=== PATIENT | male | born 1995 | race Caucasian/White ===

== ENCOUNTER 2017-08-18 02:39 | Emergency (ER) | payer OTHER ==
[~2017-08-18] VITALS: Ht 180.3 cm; Wt 115.6 kg
[2017-08-18] MEDS ORDERED: SODIUM CHLORIDE 0.9% 1,000ML IVBOLUS ONE (03:00)
[2017-08-18] MEDS ORDERED: FAMOTIDINE 20 MG/2 ML IVP ONE (03:00)
[2017-08-18] MEDS ORDERED: MAALOX/HYOSCYAMINE/LIDOCAINE 45 ML BTL PO ONE (03:00)
[2017-08-18] MEDS ORDERED: ONDANSETRON 2MG/ML, 2ML IVPush ONE (03:00)
[2017-08-18] MEDS ORDERED: SODIUM CHLORIDE FLUSH 10ML SYR IVF ONE (03:00)
[2017-08-18 03:20] LABS: HEMATOCRIT 46.9 % (39.2-51.8); HEMOGLOBIN 15.5 g/dL (13.7-18.0); WHITE BLOOD COUNT 8.7 x10^3/uL (3.4-10)
[2017-08-18 03:31] LABS: BLOOD UREA NITROGEN 14 mg/dL (7-18)
[2017-08-18 03:34] LABS: ASPARTATE AMINO TRANSFERASE 19 U/L (15-37)
[2017-08-18] MEDS ORDERED: ONDANSETRON 2MG/ML, 2ML ONE (03:52)
[2017-08-18] MEDS ORDERED: FAMOTIDINE 20 MG/2 ML ONE (03:52)
[2017-08-18] MEDS ORDERED: MAALOX/HYOSCYAMINE/LIDOCAINE 45 ML BTL ONE (03:52)
[2017-08-18] MEDS ORDERED: PROMETHAZINE 25 MG/ML, 1ML IM ONE (04:30)
[2017-08-18] MEDS ORDERED: PROMETHAZINE 25 MG/ML, 1ML ONE (04:34)
[2017-08-18 05:12] VITALS: BP 142/71
[2017-08-18] MEDS ORDERED: KETOROLAC 30 MG/1 ML ONE (05:22)
[2017-08-18] MEDS ORDERED: KETOROLAC 30 MG/1 ML IM ONE (05:30)
[2017-08-18] MEDS ORDERED: KETOROLAC 30 MG/1 ML IVPush ONE (05:30)
== END 2017-08-18 05:37 | disposition home or self-care (01) ==
LOC: ED 05:31
DX: K80.20 Calculus of gallbladder without cholecystitis without obstruction (principal); J45.909 Unspecified asthma, uncomplicated; F12.10 Cannabis abuse, uncomplicated
CPT/HCPCS: 36415; 76700; 80053; 83690; 85025; 93005; 96372; 96374; 96375; 99285; J1885; J2405; J2550; J7030; S0028